=== PATIENT | female | born 1985 | race Caucasian/White ===

== ENCOUNTER → 2018-07-21 | Outpatient (CLI) | payer BC, SELFPAY ==
[2018-07-23 12:18] LABS: HPV Reflexed? NOT INDICATED
== END | disposition home or self-care (01) ==
PROVIDERS: Visit Provider Obstetrics & Gynecology
DX: Z12.4 Encounter for screening for malignant neoplasm of cervix (principal)
CPT/HCPCS: 88175; G0145

== ENCOUNTER → 2018-10-05 10:34 | Outpatient (CLI) | payer BC, SELFPAY ==
[2018-10-05 17:15] LABS: Chlamydia Trachomatis by PCR Negative (Negative); Neisserai gonorrhoeae by PCR Negative (Negative); Probe Check PASS; Sample Adequacy Control PASS; Specimen Processing Control PASS
== END ==
PROVIDERS: Visit Provider Obstetrics & Gynecology
DX: Z11.3 Encounter for screening for infections with a predominantly sexual mode of transmission (principal); Z34.81 Encounter for supervision of other normal pregnancy, first trimester
CPT/HCPCS: 87491; 87591

== ENCOUNTER → 2018-11-03 10:34 | Outpatient (CLI) | payer BC, SELFPAY ==
[2018-11-03 13:24] LABS: Absolute Lymphocyte Count 2.03 X10^3/uL (0.83-4.51); Absolute Neutrophil Count 5.3 X10^3/uL (2.0-7.7); Basophil# 0.07 X10^3/uL; Basophil% 0.8 % (0-1); Eosinophil# 0.14 X10^3/uL; Eosinophils% 1.7 % (0-5); Hematocrit 39.2 % (37-47); Hemoglobin 12.9 g/dL (12.0-15.0); Lymphocyte # 2.03 X10^3/ul (4.0); Lymphocyte % 24.4 % (19-41); Mean Corp Hgb Conc 32.9 g/dL (32-36); Mean Corpuscular Hgb 29.7 pg (27.0-32.0); Mean Corpuscular Volume 90.3 fL (81-99); Mean Platelet Vol. 9.2 fl (6.2-12.0); Monocyte% 8.4 % (0-10); NRBC Flagged by Analyzer 0 % (0-5); Neutrophil # 5.31 X10^3/uL (2.7-7.7); Platelet Count 264 K/mm3 (150-450); RBC Distribution Width CV 12.3 % (11.6-14.6); RBC Distribution Width SD 40.3 fl (35.1-43.9); Red Blood Count 4.34 M/mm3 (4.2-5.4); White Blood Count 8.3 K/mm3 (4.4-11.0)
[2018-11-03 13:37] LABS: Color, Urine Straw (Yellow); Glucose, Dipstick Normal (Normal); Ketone-Dipstick Negative (Negative); Leukocyte Esterase-Dipstick Negative /ul (Negative); Nitrite-Dipstick Negative (Negative); Occult Blood-Urine Negative /ul (Negative); Protein-Dipstick Negative (Negative); Urine Bilirubin Dipstick Negative (Negative); Urine Clarity Clear (Clear); Urine Urobilinogen Normal (Normal)
[2018-11-03 13:50] LABS: Amphetamine Urine VISTA NEGATIVE (<1000 ng/mL); Barbiturate Urine VISTA NEGATIVE (< 200 ng/mL); Benzodiazepine Urine VISTA NEGATIVE (< 200 ng/mL); Cocaine Urine VISTA NEGATIVE (< 300 ng/mL); Ecstacy Urine VISTA NEGATIVE (< 500 ng/mL); Methadone Urine VISTA NEGATIVE (< 300 ng/mL); PCP Urine VISTA NEGATIVE (< 25 ng/mL); THC Urine VISTA NEGATIVE (< 50 ng/mL); Vista UDS pH Range 7
[2018-11-03 14:28] LABS: HIV - WCH Non-Reactive (Nonreactive); Hepatitis B Surface Antigen Non-Reactive (Nonreactive); Hepatitis C Antibody Non-Reactive (Nonreactive); Rubella IgG 397.9 IU/mL
[2018-11-05 01:45] LABS: Prenatal RPR NONREACTIVE (NONREACTIVE)
== END ==
PROVIDERS: Visit Provider Obstetrics & Gynecology
DX: Z34.81 Encounter for supervision of other normal pregnancy, first trimester (principal)
CPT/HCPCS: 36415; 80307; 81002; 84443; 85025; 86703; 86762; 86803; 87340

== ENCOUNTER → 2019-02-17 | Outpatient (CLI) | payer OTHER, SELFPAY ==
[2019-02-17 16:08] LABS: Glucose Challenge Gest 1H 50g 99 mg/dL (70-140)
[2019-02-17 16:25] LABS: Hematocrit 37.7 % (37-47); Hemoglobin 12.3 g/dL (12.0-15.0); Mean Corp Hgb Conc 32.6 g/dL (32-36); Mean Corpuscular Hgb 29.4 pg (27.0-32.0); Mean Corpuscular Volume 90.2 fL (81-99); Mean Platelet Vol. 10.2 fl (6.2-12.0); Platelet Count 307 K/mm3 (150-450); RBC Distribution Width CV 12.8 % (11.6-14.6); Red Blood Count 4.18 M/mm3 (4.2-5.4); White Blood Count 11.8 K/mm3 (4.4-11.0)
== END | disposition home or self-care (01) ==
LOC: WOBLAB 13:25
PROVIDERS: Referring Provider Obstetrics & Gynecology; Visit Provider Obstetrics & Gynecology
DX: Z34.83 Encounter for supervision of other normal pregnancy, third trimester (principal)
CPT/HCPCS: 36415; 82950; 85027

== ENCOUNTER → 2019-04-14 | Outpatient (CLI) | payer OTHER, SELFPAY | END | disposition home or self-care (01) | LOC: LABSPEC 15:22 | PROVIDERS: Visit Provider Obstetrics & Gynecology | DX: Z11.3 Encounter for screening for infections with a predominantly sexual mode of transmission (principal) | CPT/HCPCS: 87081 ==

== ENCOUNTER 2019-04-26 07:05 | Inpatient (IN) | payer OTHER, SELFPAY ==
[2019-04-26] VITALS (25 sets, daily range): BP systolic 121–163; BP diastolic 69–98; PULSE 57–80; TEMP 97.5–99; BMI 28.3
[2019-04-26] MEDS: Lactated Ringers 1,000 ML 50 ML IV (07:43)
[2019-04-26 08:00] LABS: Absolute Lymphocyte Count 2.76 X10^3/uL (0.83-4.51); Absolute Neutrophil Count 7.8 X10^3/uL (2.0-7.7); Basophil# 0.04 X10^3/uL; Basophil% 0.3 % (0-1); Eosinophil# 0.11 X10^3/uL; Eosinophils% 0.9 % (0-5); Hematocrit 37.3 % (37-47); Hemoglobin 12.2 g/dL (12.0-15.0); Lymphocyte # 2.76 X10^3/ul (4.0); Lymphocyte % 23.3 % (19-41); Mean Corp Hgb Conc 32.7 g/dL (32-36); Mean Corpuscular Volume 88.8 fL (81-99); Monocyte# 1.04 X10^3/uL; Monocyte% 8.8 % (0-10); NRBC Flagged by Analyzer 0 % (0-5); Platelet Count 292 K/mm3 (150-450); RBC Distribution Width SD 45.1 fl (35.1-43.9); White Blood Count 11.8 K/mm3 (4.4-11.0)
--- NOTE | 2019-04-26 08:07 | HP.PCM_ITS ---
- Problem List (1) 38 weeks gestation of Status: Acute (2) IUGR (intrauterine growth restriction) Status: Acute History Date of Admission: 04/26/19 Final RAY: 05/09/19 Gestational age: 38 Weeks and 1 Days History of this : This is a 34 year-old, G [1], P [], at 38.1 weeks gestational age presenting for scheduled induction of labor for IUGR. Followed by M this with normal umbilical artery Dopplers thus far. EFW 2275g on 04/18/19. Allergies Penicillins Allergy (Verified 04/26/19 07:36) Hives Home Medications: Home Medications L.acidoph,Paracasei, B.lactis [Probiotic] 1 ea PO DAILY 04/26/19 Vits [Prenatabs FA ] 1 tab PO DAILY 04/26/19 Smoking Status: Current every day smoker Alcohol: None Number of Fetus(es): 1 NST - FHR Rate Baby A Baseline: 140 Variability:: Moderate Accelerations:: 15 x 15 Decelerations:: None NST Reactive:: Yes FHR Category:: Category I Uterine Activity:: 3/10 History Past Pregnancies: Past Pregnancies Delivery Date Name GA/ Weeks Outcome Route Wt Sex Labor Length Anesthesia Delivery Location Provider FOB Labs: Mom's Problem List Problem Status Onset Code 38 weeks gestation of Acute Z3A.38 IUGR (intrauterine growth restriction) Acute Mom's Labs & Results 04/26/19 04/26/19 07:40 07:40 WBC 11.8 H RBC 4.20 Hgb 12.2 Hct 37.3 MCV 88.8 MCH 29.0 MCHC 32.7 RDW Std Deviation 45.1 H RDW Coeff of Kennedi 14.0 Plt Count 292 MPV 10.0 Immature Gran % (Auto) 0.700 Neut % (Auto) 66.0 Lymph % (Auto) 23.3 [place] % (Auto) 8.8 Eos % (Auto) 0.9 Baso % (Auto) 0.3 Absolute Neuts (auto) 7.8 H Absolute Lymphs (auto) 2.76 Nucleated RBC % 0 Blood Type O POSITIVE Antibody Screen NEGATIVE Course Did the patient receive Yes care? Labs Blood Type: O RH: POSITIVE RPR/VDRL/Syphilis Nonreactive Rubella status Immune HbSAg Negative Date Done: 11/03/18 Chlamydia Negative Gonorrhea Negative HIV/AIDS Non-Reactive Group B Strep: Negative Current Obstetrical History Gestational Diabetes No Incompetent Cervix No Infertility No IUGR Yes Macrosomia No Hypertension/Pre-eclampsia No Placenta Previa/Abruption No PTL/PROM No Uterine anomaly No Oligohydramnios No Polyhydramnios No Multiple gestation No Past Medical History Asthma Yes: hx sports induced - resolved Diabetes No Hypertension No Heart disease No Mitral valve prolapse No Neurologic/Seizure disorder/ No Migraines Kidney disease No Liver disease No Varicosities No Clotting disorders/Hx of DVT No Thyroid Dysfunction No Other medical diseases Yes: hypoglycemia Psychiatric disorders Yes: depression/anxiety Major trauma No Abnormal PAP smear Yes: 7yrs ago HPV Sleep apnea No Mammogram in the last 2 years No Social History Marital Status: Alleged father Pollo German Hx Smoking Yes Smoking Status Former smoker Expected Infant Delivery Method: Spontaneous Vaginal Number of Visits: 10 Physical Exam Vitals: AVSS General: Alert, Oriented x3, Cooperative, No apparent distress HEENT: Atraumatic, Normocephalic Cardiovascular: Regular rate, Regular Rhythm Lungs: Clear to auscultation, Normal air movement Abdomen: Soft, Non Tender, Non-Distended Extremities:: No edema Neurological: Neuro grossly intact Estimated gestational size: Appropriate for gestational size Presentation: Cephalic Assessment/Plan All Active Problems 38 weeks gestation of (Acute) IUGR (intrauterine growth restriction) (Acute) This is a 34 year-old, G [1], P [], at 38.1 weeks gestational age, Cat I FHR -MULTIMEDIA JOURNALIST this am, if negative, proceed with induction
[2019-04-26] MEDS: Oxytocin 30 units/NS 500 ml 30 UNITS/500 ML IV.SOLN IV (08:15)
[2019-04-26] MEDS: miSOPROStol 25 MCG TABLET PO (10:45)
[2019-04-26] MEDS: 0.9% Saline Lock 10 ML Syringe IV ×2 (12:52→21:04)
[2019-04-26] MEDS: miSOPROStol 25 MCG TABLET 50 MCG PO (14:57)
--- NOTE | 2019-04-26 20:30 | PCM.PN.BLA ---
Progress Note LABOR PROGRESS NOTE Verónica notes painless contractions q3-4 minutes. + FM. AVSS GEN - NAD, AAO x 3 FHR 130, moderate variability, + accelerations, no decelerations TOCO 4/10 min SVE 2/75/-3, soft and midposition A/P: 34 yo G1 @ 38 1/7wga, Cat I FHR -Aborted roman bulb insertion given cervix soft and favorable. -Membranes stripped, will start pitocin. -Maternal and statuses reassuring.
[2019-04-27] VITALS (73 sets, daily range): BP systolic 93–162; BP diastolic 49–100; PULSE 56–110; RESP 14–18; TEMP 36.6–37.3; O2SAT 96–100
--- NOTE | 2019-04-27 04:14 | PCM.PN.BLA ---
Progress Note LABOR PROGRESS NOTE No complaints. Denies headache, vision changes. AVSS GEN - NAD, AAO x 3 FHR 130, moderate variability, + 10 x 10 acceleration, no deceleration SVE 4/75/-2 TOCO not tracing, pt on her side A/P: 34yo G1 @ 38 2/7wga, IOL, IUGR, Cat I FHR -Amniotomy performed with clear fluid -Continue pitocin as tolerated by mother and fetus -Maternal and statuses reassuring
[2019-04-27] MEDS: Lactated Ringers 500 ML 999 ML IV ×2 (04:25→06:36)
[2019-04-27] MEDS: Oxytocin 30 units/NS 500 ml 30 UNITS/500 ML IV.SOLN 6 UNITS IV (04:44)
[2019-04-27] MEDS: Ondansetron 4 MG/2 ML Vial IV (04:45)
[2019-04-27] MEDS: Lactated Ringers 1,000 ML 50 ML IV (04:45)
[2019-04-27] MEDS: fentaNYL-bupivacaine (epidural) 100 ML BAG EPIDURAL (06:26)
--- NOTE | 2019-04-27 07:15 | PCM.PN.BLA ---
Progress Note LABOR PROGRESS NOTE FHR Cat II with prolonged decelerations. Arrived to room and BP 90s/40s, Dr. Owen administered Ephedrine and IV bolus initiated. Patient repositioned into left lateral decubitus. SVE 4/90/0, IUPC and ISE placed, however poorly tracing ISE and EFM reapplied with improvement of heart rate to 170s bpm, returning to baseline 140, moderate variability over approximately 10-15 minutes. Will continue to monitor. Pitocin held.
[2019-04-27] MEDS: Oxytocin 30 units/NS 500 ml 30 UNITS/500 ML IV.SOLN 334 UNITS IV (10:38)
--- NOTE | 2019-04-27 10:40 | PLAC_PTH ---
PATIENT: PREET PAEZ LOC: [facility] U#:[id number] AGE/SX: 34/F ROOM: WP005 RE04/26/[address]: Dr. Tosha Watson MD : 1985 BED: 1 DIS: 04/29/2019 SPEC #: [id number] RECD: 04/27/19 13:34 STATUS: RODRI REHerbert #: [id number] KARISHMA: 04/27/19 10:[address]: Tosha Denise DEPT: SURGICAL PATHOLOGY RECD BY: Jesus Mars ENTERED: 04/27/19 14:06 SP TYPE: PLACENTA OTHR DR: RACHEL Vallejo Tissues: Placenta, NOS Procedures: Surgery Specimen Level V HEADER OPERATION: Vaginal delivery PRE-OP DIAGNOSIS: Vaginal deliver, IUGR TISSUE SUBMITTED: Placenta MICROSCOPIC DIAGNOSIS Placenta: Placental disc - third trimester placenta (278 gm). -?focal area of infarction with calcification (0.7 cm in greatest dimension). Membranes - no pathologic diagnosis. Umbilical cord - three blood vessels and no pathologic diagnosis. SJ:thien 04/29/19 MICROSCOPIC DESCRIPTION Slides are reviewed. GROSS DESCRIPTION SPECIMEN: PLACENTA / CLINICAL INFORMATION: A. Weight: 2.26 kg B. Gestational Age: 38 weeks C. Sex: Male PLACENTAL WEIGHT (POST FIXATION): 278 gm PLACENTAL DIMENSIONS: 14 x 12 x 2.5 cm PLACENTAL SHAPE: Usual ovoid PLACENTAL WEIGHT FOR GESTATIONAL AGE: Less than 10 percentile MEMBRANES - Present A. Insertion: Marginal B. Site of rupture from edge: 2 cm from edge of placental disc C. Color of membrane: Moreira-kyle D. Abnormalities: None UMBILICAL CORD - Present A. Color: Moreira-kyle B. Insertion: Paracentral C. Length: 28 cm D. Diameter: 1 cm E. Number of vessels: Three F. Abnormalities: A cyst is noted at the insertion of the umbilical cord filled with clear fluid. PLACENTAL DISC - Present A. Color of surface: Moreira-kyle B. surface abnormalities: None C. Maternal cotyledons: Intact with minimal tears D. Attached retro placental clot: No clot E. Cut surface: Dark red and spongy F. Lesions: Sections reveal a moreira, indurated area close to maternal surface measuring 0.7 cm in greatest dimension. G. Separate clot: Absent SECTIONS SUBMITTED: 1. Membrane roll 2. Cord, maternal end 3. Cord, end 4. Placental disc, and maternal surfaces, lesion 5. Placental disc, and maternal surfaces 6. Placental disc, and maternal surfaces NANY:thien 04/28/19 TC:5 CPT: 28301
--- NOTE | 2019-04-27 11:15 | NURSING ---
Indwelling urinary catheter present. WNL.
[2019-04-27] MEDS: 0.9% Saline Lock 10 ML Syringe IV (13:16)
--- NOTE | 2019-04-27 14:00 | PCM.OPRPT ---
Problem List (1) 38 weeks gestation of Status: Acute (2) IUGR (intrauterine growth restriction) Status: Acute Vaginal Delivery Maternal Presentation: Medically Indicated Induction Method of Induction: Pitocin, Amniotomy, Cytotec Medical Reason for Induction: Compromise: list:, - - IUGR Amniotic Membrane Rupture Type: Artificial Amniotic Fluid Description: Clear Final RAY Source: US <20 weeks Date of Procedure: 04/27/19 Surgery/ Procedure Performed: Spontaneous Vaginal Delivery Anesthesiologist: Cecily Owen Type of Anesthesia: Epidural Description of Procedure: Patient was FD\+2 station on my initial second stage evaluation. She pushed over approximately 1.5 hours with Cat I-II FHR to deliver a vigorous male infant in OA over an intact perineum. The infant was placed on the maternal abdomen and further attended by nursery personnel. The cord was doubly clamped and cut after 2 minutes of life. Cord gases and cord blood were obtained. The placenta delivered spontaneously and appeared intact on inspection. Sponge counts were correct x 2. Presentation: Vertex Placental Delivery Description: Spontaneous Placenta Disposition: [facility] Cord Vessel Description: 3 Vessels Nuchal Cord Compression: Without compression Cord Gases drawn per routine: ABG, VBG Cord Entanglement: None Drain: Welch to straight drain Estimated Blood Loss: 150 ml Infant A gender: Male Episiotomy Description: None Laceration: None Medications given after delivery: IV Pitocin Complications: None
[2019-04-28] VITALS: BP 117/76; PULSE 97; RESP 14; TEMP 36.8
[2019-04-28 03:15] VITALS: BP 120/77; PULSE 93; RESP 18; TEMP 36.6
[2019-04-28 08:00] VITALS: BP 131/80; PULSE 78; RESP 16; TEMP 37
--- NOTE | 2019-04-28 09:19 | PCM.PN.OB ---
Patient Problems: Active and Suspected Problems 38 weeks gestation of (Acute) IUGR (intrauterine growth restriction) (Acute) Subjective: Verónica was sore yesterday after delivery, but reports pain is minimal today. Denies heavy lochia. She is nursing infant, they are working on latch. No complaints. Objective: avss - Physical Exam Vitals/I&O's: Vital Signs Temp Pulse Resp BP 98 F 93 18 120/77 04/28/19 03:15 04/28/19 03:15 04/28/19 03:15 04/28/19 03:15 Oxygen Delivery Method Room Air Weight: 74.8 kg Body Mass Index (BMI) 28.3 Intake and Output for Last 24 Hours 04/26/19 04/27/19 04/28/19 23:59 23:59 23:59 Intake Total 1293.96 / 1413.96 2548.97 / 2548.97 Output Total 1600 / 2350 3050 / 3050 Balance -306.04 / -936.04 -501.03 / -501.03 General: Alert, Oriented x3, Cooperative, No apparent distress HEENT: Atraumatic, Normocephalic Abdomen: Soft, Non Tender, Non-Distended, - - fundus firm and nontender Extremities: No edema, No Calf Tenderness Neurological: Neuro grossly intact Psych/Mental Status: Normal Affect, Appropriate, Alert and oriented to time, place, person, mood and affect Current Medications Acetaminophen (Tylenol) 1,000 mg PO Q8H PRN PRN PRN Reason: Pain Score 1-3/10 Bisacodyl (Dulcolax) 10 mg RECTAL UD PRN PRN Reason: If no BM Dibucaine (Dibucaine) 1 applic TOPICAL TID PRN PRN; Protocol PRN Reason: Discomfort Hydrocortisone (Hytone) 1 applic TOPICAL TID PRN PRN; Protocol PRN Reason: Discomfort Ibuprofen (Motrin) 600 mg PO Q6H PRN PRN PRN Reason: Pain Score 1-3/10 Methylergonovine Maleate (Methergine) 0.2 mg IM X1 PRN PRN Reason: Excess bleeding/uterine atony Ondansetron HCl (Zofran) 4 mg IV Q4H PRN PRN PRN Reason: NAUSEA Last Admin: 04/27/19 04:45 Dose: 4 mg Documented by: Senna/Docusate Sodium (Senokot-S, Brenda-Colace) 1 - 2 tablet PO DAILY PRN PRN PRN Reason: Constipation Simethicone (Mylicon) 80 mg PO PCHS PRN PRN Reason: Indigestion/Stomach pain Sodium Chloride () 5 - 15 ml IV UD PRN PRN Reason: SALINE FLUSH Last Admin: 04/27/19 13:16 Dose: 10 ml Documented by: Medical Necessity - Tobacco Use Smoking Status: Former smoker Assessment/Plan All Active Problems 38 weeks gestation of (Acute) IUGR (intrauterine growth restriction) (Acute) This is a 34 year-old, G [1], P1 PPD#1 s/p doing well. -RH positive -Routine care -
[2019-04-28 14:00] VITALS: BP 155/88; PULSE 91; RESP 18; TEMP 36.7
[2019-04-28] MEDS: Acetaminophen 500 MG Tablet 1000 MG PO (18:25)
[2019-04-28 20:50] VITALS: BP 146/94; PULSE 75; RESP 17; TEMP 36.4
[2019-04-29 02:45] VITALS: BP 131/85; PULSE 85; RESP 16
--- NOTE | 2019-04-29 08:29 | PCM.PN.OB ---
Patient Problems: Active and Suspected Problems 38 weeks gestation of (Acute) IUGR (intrauterine growth restriction) (Acute) Subjective: Patient without complaints. Breast-feeding going well. Wants to go home if baby is able to go home. - Physical Exam Vitals/I&O's: Vital Signs Temp Pulse Resp BP 97.6 F L 85 16 131/85 H 04/28/19 20:50 04/29/19 02:45 04/29/19 02:45 04/29/19 02:45 Oxygen Delivery Method Room Air Weight: 164 lb 14.492 oz Body Mass Index (BMI) 28.3 Intake and Output for Last 24 Hours 04/27/19 04/28/19 04/29/19 23:59 23:59 23:59 Intake Total 2548.97 / 2548.97 Output Total 3050 / 3050 Balance -501.03 / -501.03 Current Medications Acetaminophen (Tylenol) 1,000 mg PO Q8H PRN PRN PRN Reason: Pain Score 1-3/10 Last Admin: 04/28/19 18:25 Dose: 1,000 mg Documented by: Bisacodyl (Dulcolax) 10 mg RECTAL UD PRN PRN Reason: If no BM Dibucaine (Dibucaine) 1 applic TOPICAL TID PRN PRN; Protocol PRN Reason: Discomfort Hydrocortisone (Hytone) 1 applic TOPICAL TID PRN PRN; Protocol PRN Reason: Discomfort Ibuprofen (Motrin) 600 mg PO Q6H PRN PRN PRN Reason: Pain Score 1-3/10 Methylergonovine Maleate (Methergine) 0.2 mg IM X1 PRN PRN Reason: Excess bleeding/uterine atony Ondansetron HCl (Zofran) 4 mg IV Q4H PRN PRN PRN Reason: NAUSEA Last Admin: 04/27/19 04:45 Dose: 4 mg Documented by: Senna/Docusate Sodium (Senokot-S, Brenda-Colace) 1 - 2 tablet PO DAILY PRN PRN PRN Reason: Constipation Simethicone (Mylicon) 80 mg PO PCHS PRN PRN Reason: Indigestion/Stomach pain Sodium Chloride () 5 - 15 ml IV UD PRN PRN Reason: SALINE FLUSH Last Admin: 04/27/19 13:16 Dose: 10 ml Documented by: Medical Necessity - Tobacco Use Smoking Status: Former smoker Assessment/Plan All Active Problems 38 weeks gestation of (Acute) IUGR (intrauterine growth restriction) (Acute) Doing well day #2 status post routine spontaneous vaginal delivery will discharge to home with routine instructions.
--- NOTE | 2019-04-29 08:30 | DCINST_ITS ---
Discharge Diet: No Restrictions Discharge Activity: May Shower, May Take a Tub Bath May resume sexual activity in: 4-6 weeks Additional Activity Instructions:: Nothing in the vagina for 4-6 weeks. You may return to work/school in 6 weeks. Call your doctor if you observe: Inability to urinate, Inability to have a bowel movement, Using more than one pad per hour Additional Instructions: If you experience any of the following, contact your healthcare provider. * Bleeding that soaks a pad every hour for 2 hours * Fever 100.4 or higher * Unrelieved incision or abdominal pain * Swelling, redness, discharge or bleeding from your incision or episiotomy site * Your incision begins to separate * Problems urinating (including inability to urinate or burning while urinating). * Visual changes * Severe headache * Flu-like symptoms * Pain or redness in one of both of your breasts * Pain, warmth, tenderness or swelling in your legs, especially the calf area * Frequent nausea and vomiting * Symptoms of depression or anxiety If you experience any of the following, call 911 or go to the nearest Emergency Room. * Chest pain * Problems breathing * Seizure activity * Partial or complete paralysis of a body part, slurred speech, weakness or drooping of the face, or a sudden inability to walk or hold your balance Allergies/Adverse Reactions: Allergies Penicillins Allergy (Verified 04/26/19 07:36) Hives Medications to take at Discharge L.acidoph,Paracasei, B.lactis [Probiotic] 1 ea PO DAILY 04/26/19 Vits [Prenatabs FA ] 1 tab PO DAILY 04/26/19 Please Follow Up With: Tosha Kim MD - [phone] When: Call to make an appointment with your doctor in 2 and 6 weeks. Primary Care Physician: Blaine Jones PA [Primary Care Provider] - Test Results: Test results from this visit will be discussed in further detail at your follow- up appointment, if applicable.
--- NOTE | 2019-04-29 08:30 | PCM.DCVAG ---
Discharge Diet: No Restrictions Discharge Activity: May Shower, May Take a Tub Bath May resume sexual activity in: 4-6 weeks Additional Activity Instructions:: Nothing in the vagina for 4-6 weeks. You may return to work/school in 6 weeks. Call your doctor if you observe: Inability to urinate, Inability to have a bowel movement, Using more than one pad per hour Additional Instructions: If you experience any of the following, contact your healthcare provider. Bleeding that soaks a pad every hour for 2 hours Fever 100.4 or higher Unrelieved incision or abdominal pain Swelling, redness, discharge or bleeding from your incision or episiotomy site Your incision begins to separate Problems urinating (including inability to urinate or burning while urinating). Visual changes Severe headache Flu-like symptoms Pain or redness in one of both of your breasts Pain, warmth, tenderness or swelling in your legs, especially the calf area Frequent nausea and vomiting Symptoms of depression or anxiety If you experience any of the following, call 911 or go to the nearest Emergency Room. Chest pain Problems breathing Seizure activity Partial or complete paralysis of a body part, slurred speech, weakness or drooping of the face, or a sudden inability to walk or hold your balance Allergies/Adverse Reactions: Allergies Penicillins Allergy (Verified 04/26/19 07:36) Hives Medications to take at Discharge L.acidoph,Paracasei, B.lactis [Probiotic] 1 ea PO DAILY 04/26/19 Vits [Prenatabs FA ] 1 tab PO DAILY 04/26/19 Please Follow Up With: Tosha Kim MD - [phone] When: Call to make an appointment with your doctor in 2 and 6 weeks. Primary Care Physician: Blaine Jones PA [Primary Care Provider] - Test Results: Test results from this visit will be discussed in further detail at your follow-up appointment, if applicable.
[2019-04-29 10:00] VITALS: BP 132/72; PULSE 70; RESP 16; TEMP 36.8
[2019-04-29 14:30] VITALS: BP 128/70; PULSE 68; RESP 12; TEMP 36.8
[2019-05-02 11:33] LABS: Pathology Specimen OB SEE PATHOLOGY REPORT
== END 2019-04-29 15:00 | disposition home or self-care (01) | DRG 807 ==
PROVIDERS: Admitting Provider Obstetrics & Gynecology; PCP Physician Assistant; Referring Provider Physician Assistant; Visit Provider Obstetrics & Gynecology
DX: O36.5930 Maternal care for other known or suspected poor fetal growth, third trimester, not applicable or unspecified (principal); Z37.0 Single live birth; O76 Abnormality in fetal heart rate and rhythm complicating labor and delivery; Z3A.38 38 weeks gestation of pregnancy; Z87.891 Personal history of nicotine dependence
CPT/HCPCS: 59020; 59025; 59050; 85025; 86850; 86900; 86901; 88307; 99218; J7120; A4216; G0378; J2405

== ENCOUNTER → 2019-07-12 10:55 | Outpatient (CLI) | payer OTHER, SELFPAY ==
[2019-04-26 07:49] VITALS: BMI 28.3
[2019-07-12 15:40] LABS: hCG Titer Quant., Serum < 1 mIU/mL (1-3)
[2019-07-12 15:58] LABS: Progesterone Level 0.39 ng/mL (See Comment)
== END ==
PROVIDERS: PCP Physician Assistant; Visit Provider Obstetrics & Gynecology
DX: Z30.430 Encounter for insertion of intrauterine contraceptive device (principal)
CPT/HCPCS: 36415; 84144; 84702

== ENCOUNTER → 2022-04-09 | Outpatient (CLI) | payer OTHER, SELFPAY ==
[2022-04-17 22:45] LABS: HPV APTIMA, High Risk Negative (Negative)
== END | disposition home or self-care (01) ==
LOC: LABSPEC 15:07
PROVIDERS: PCP Physician Assistant; Visit Provider Student in an Organized Health Care Education/Training Program
DX: Z12.4 Encounter for screening for malignant neoplasm of cervix (principal)
CPT/HCPCS: 87624; 88175; G0145

== ENCOUNTER → 2022-08-13 | Outpatient (CLI) | payer OTHER, SELFPAY ==
--- NOTE | 2022-08-13 11:58 | US_ITS ---
INDICATION: HYPOTHYROIDISM EXAMINATION: Ultrasound US Thyroid (eg thyroid, parathyroid, parotid) TECHNIQUE: Conklin scale and color doppler imaging was performed of the thyroid gland. COMPARISON: FINDINGS: RIGHT THYROID LOBE: 3.9 x 1.3 x 1.3 cm.. Homogeneous echotexture with normal vascularity. [No thyroid nodules are present. Colloid cyst anterior midpole 0.2 x 0.2 x 0.1 cm T RADS category 1. LEFT THYROID LOBE: 4.1 x 1.2 x 1.1 cm.. Homogeneous echotexture with normal vascularity. [No thyroid nodules are present. Colloid cyst anterior upper pole 0.3 x 0.1 x 0.2 cm T RADS category 1. ISTHMUS: 0.17 cm.. No thyroid nodules are present. US/Thyroid IMPRESSION: Single right and single left colloid cyst within the thyroid gland. T RADS category 1 benign. Electronically Signed: José Luis Harris MD, WERNER at 20:21 EDT ,
== END | disposition home or self-care (01) ==
PROVIDERS: PCP Physician Assistant; Referring Provider Physician Assistant; Visit Provider Physician Assistant
DX: E03.9 Hypothyroidism, unspecified (principal)
CPT/HCPCS: 76536

== ENCOUNTER → 2023-10-01 | Outpatient (CLI) | payer BC, SELFPAY ==
[2023-10-06 11:59] LABS: Chlamydia By Nucleic Acid AMP Negative (Negative); Gonococcus By Nucleic Acid AMP Negative (Negative)
== END | disposition home or self-care (01) ==
PROVIDERS: PCP Physician Assistant; Referring Provider Advanced Practice Midwife; Visit Provider Advanced Practice Midwife
DX: O09.90 Supervision of high risk pregnancy, unspecified, unspecified trimester (principal); Z3A.00 Weeks of gestation of pregnancy not specified
CPT/HCPCS: 87086; 87491; 87591

== ENCOUNTER → 2023-11-26 | Outpatient (CLI) | payer BC, SELFPAY ==
[2023-11-26 13:20] LABS: Absolute Lymphocyte Count 1.89 X10^3/uL (0.83-4.51); Absolute Neutrophil Count 6.9 X10^3/uL (2.0-7.7); Basophil# 0.04 X10^3/uL; Basophil% 0.4 % (0-1); Eosinophil# 0.11 X10^3/uL; Eosinophils% 1.1 % (0-5); Hematocrit 36.3 % (37-47); Hemoglobin 11.7 g/dL (12.0-15.0); Lymphocyte # 1.89 X10^3/ul (0.83-4.51); Lymphocyte % 19.3 % (19-41); Mean Corp Hgb Conc 32.2 g/dL (32-36); Mean Corpuscular Hgb 28.4 pg (27.0-32.0); Mean Corpuscular Volume 88.1 fL (81-99); Mean Platelet Vol. 9.2 fl (6.2-12.0); Monocyte# 0.72 X10^3/uL; Monocyte% 7.3 % (0-10); NRBC Flagged by Analyzer 0 % (0-5); Neutrophil # 6.89 X10^3/uL (2.7-7.7); Neutrophil % 70.4 % (47-70); Platelet Count 282 K/mm3 (150-450); RBC Distribution Width CV 13.1 % (11.6-14.6); Red Blood Count 4.12 M/mm3 (4.2-5.4); White Blood Count 9.8 K/mm3 (4.4-11.0)
[2023-11-26 14:20] LABS: HIV - WCH Non-Reactive (Nonreactive); Hepatitis B Surface Antigen Non-Reactive (Nonreactive); Hepatitis C Antibody Non-Reactive (Nonreactive); Rubella IgG Reactive (Nonreactive); Syphilis Antibodies Non-reactive
== END | disposition home or self-care (01) ==
LOC: LAB 12:52
PROVIDERS: PCP Physician Assistant; Referring Provider Advanced Practice Midwife; Visit Provider Advanced Practice Midwife
DX: O09.90 Supervision of high risk pregnancy, unspecified, unspecified trimester (principal); Z3A.00 Weeks of gestation of pregnancy not specified
CPT/HCPCS: 36415; 85025; 86703; 86762; 86780; 86803; 86850; 86900; 86901; 87340

== ENCOUNTER → 2024-01-19 | Outpatient (CLI) | payer BC, SELFPAY ==
[2024-01-19 11:51] LABS: Absolute Lymphocyte Count 1.72 X10^3/uL (0.83-4.51); Absolute Neutrophil Count 6.6 X10^3/uL (2.0-7.7); Basophil# 0.03 X10^3/uL; Basophil% 0.3 % (0-1); Eosinophil# 0.11 X10^3/uL; Eosinophils% 1.2 % (0-5); Hemoglobin 11.2 g/dL (12.0-15.0); Lymphocyte # 1.72 X10^3/ul (0.83-4.51); Lymphocyte % 18.6 % (19-41); Mean Corp Hgb Conc 31.1 g/dL (32-36); Mean Corpuscular Hgb 27.9 pg (27.0-32.0); Mean Corpuscular Volume 89.8 fL (81-99); Mean Platelet Vol. 9.6 fl (6.2-12.0); Monocyte# 0.66 X10^3/uL; Monocyte% 7.2 % (0-10); NRBC Flagged by Analyzer 0 % (0-5); Neutrophil % 71.5 % (47-70); Platelet Count 301 K/mm3 (150-450); RBC Distribution Width CV 13.2 % (11.6-14.6); RBC Distribution Width SD 43.2 fl (35.1-43.9); Red Blood Count 4.01 M/mm3 (4.2-5.4); White Blood Count 9.2 K/mm3 (4.4-11.0)
[2024-01-19 11:56] LABS: Glucose Challenge Gest 1H 50g 88 mg/dL (70-140)
[2024-01-19 12:29] LABS: HIV - WCH Non-Reactive (Nonreactive); Syphilis Antibodies Non-reactive
== END | disposition home or self-care (01) ==
LOC: BWCLAB 09:55
PROVIDERS: PCP Physician Assistant; Referring Provider Obstetrics & Gynecology; Visit Provider Obstetrics & Gynecology
DX: O09.92 Supervision of high risk pregnancy, unspecified, second trimester (principal); Z13.1 Encounter for screening for diabetes mellitus; Z3A.00 Weeks of gestation of pregnancy not specified
CPT/HCPCS: 36415; 82950; 85025; 86703; 86780

== ENCOUNTER → 2024-04-01 | Outpatient (CLI) | payer BC, SELFPAY | END | disposition home or self-care (01) | LOC: LABSPEC 15:48 | PROVIDERS: PCP Physician Assistant; Referring Provider Registered Nurse; Visit Provider Registered Nurse | DX: O09.92 Supervision of high risk pregnancy, unspecified, second trimester (principal); Z3A.00 Weeks of gestation of pregnancy not specified | CPT/HCPCS: 87081 ==

== ENCOUNTER 2024-04-15 13:50 | Outpatient (CLI) | payer BC, SELFPAY ==
[2024-04-15 14:00] VITALS: BP 138/87; PULSE 76; TEMP 37
[2024-04-15 14:15] VITALS: BMI 29.2
[2024-04-15 14:21] VITALS: BP 129/79; PULSE 78
[2024-04-15 14:25] LABS: Hematocrit 38.2 % (37-47); Hemoglobin 12.5 g/dL (12.0-15.0); Mean Corp Hgb Conc 32.7 g/dL (32-36); Mean Corpuscular Hgb 27.4 pg (27.0-32.0); Mean Corpuscular Volume 83.6 fL (81-99); Mean Platelet Vol. 9.4 fl (6.2-12.0); Platelet Count 430 K/mm3 (150-450); RBC Distribution Width CV 13.9 % (11.6-14.6); RBC Distribution Width SD 42.4 fl (35.1-43.9); Red Blood Count 4.57 M/mm3 (4.2-5.4); White Blood Count 13.1 K/mm3 (4.4-11.0)
[2024-04-15 14:33] LABS: Protein, Urine (Random) < 6.0 mg/dL (<11.9); Protein:Creat Ratio 160 mg/g CRE (0-200)
[2024-04-15 14:34] VITALS: BP 125/80; PULSE 79
[2024-04-15 14:35] LABS: AST(SGOT) 15 U/L (15-37); Alanine Aminotransfer ALT/SGPT 22 U/L (13-56); Creatinine, Serum 0.59 mg/dL (0.55-1.02); EST Glomerular Filtration Rate 122 mL/min (>60); Est Glom Filt Rate - Afr Amer 148 mL/min (>60); Estimated Creatinine Clearance 131.21 ml/min; Uric Acid 4.3 mg/dL (2.6-6.0)
--- NOTE | 2024-04-15 14:40 | US_ITS ---
PROCEDURE: OB LIMITED (NO BIOMETRICS) REASON FOR EXAM: Amniotic fluid index. COMPARISON: None. FINDINGS Number: 1 Position: Vertex Placental Position: Fundal Placental Abnormalities: None. ESTIMATED GESTATIONAL AGE: Baseline: 38 weeks and 4 days ESTIMATED DATE OF DELIVERY: Baseline: April 25, 2024 BIOPHYSICAL ASSESSMENT: Amniotic Fluid Volume: 6.5 cm Amniotic Fluid Index: 10.6 (8-24 cm normal range) Cardiac Motion: 154 beats per minute (average) Trunk and Limb Motion: Present. US/OB Limited (No Biometrics) IMPRESSION: Normal amniotic fluid index. Reading Location: [facility]
--- NOTE | 2024-04-15 15:22 | OB.TRI.PN ---
Progress Notes Date of Service: 04/15/24 Progress Note: Patient presents for triage evaluation secondary to elevated bp and decreased fundal height. FHT: 140 Moderate variability reactive no decelerations category I tracing [place]: no Contractions Assessment and plan: TATE reassuring and labs normal, Reactive NST, reassuring maternal and status patient discharged to home to follow-up in office at next appointment. See problem list details for additional plan information. Laboratory Studies: Laboratory Tests 04/15/24 04/15/24 Range/Units 14:10 13:45 WBC 13.1 H (4.4-11.0) K/mm3 RBC 4.57 (4.2-5.4) M/mm3 Hgb 12.5 (12.0-15.0) g/dL Hct 38.2 (37-47) % MCV 83.6 (81-99) fL MCH 27.4 (27.0-32.0) pg MCHC 32.7 (32-36) g/dL RDW Std Deviation 42.4 (35.1-43.9) fl RDW Coeff of Kennedi 13.9 (11.6-14.6) % Plt Count 430 (150-450) K/mm3 MPV 9.4 (6.2-12.0) fl Creatinine 0.59 (0.55-1.02) mg/dL Estim Creat Clear Calc 131.21 ml/min Est GFR (MDRD) Af Amer 148 (>60) mL/min Est GFR (MDRD) Non-Af 122 (>60) mL/min Uric Acid 4.3 (2.6-6.0) mg/dL AST 15 (15-37) U/L ALT 22 (13-56) U/L U Random Total Protein < 6.0 (<11.9) mg/dL Urine Creatinine 31.30 (NO RANGE EST.) mg/dL Protein/Creatinin Ratio 160 (0-200) mg/g CRE Charges/Coding Multi Select Codes Urinary/Genital Urinary/Genital CPT Codes: 08703-41 non-stress test Interp Assessment & Plan (1) Uterine size date discrepancy : COMMENT: normal TATE-d/c home (2) AMA (advanced maternal age) multigravida 35+: COMMENT: 36 week growth US and delivery by 40 weeks (3) Pyelectasis of fetus on ultrasound: COMMENT: rpt us at 24- pyelectasis continues,28, 36 weeks (4) History of prior with IUGR : COMMENT: 36 week growth US (5) Depression: QUALIFIERS: Depression Type: unspecified Qualified Code(s): F32.A - Depression, unspecified (6) Supervision of high-risk : QUALIFIERS: Trimester: second trimester Qualified Code(s): O09.92 - Supervision of high risk , unspecified, second trimester COMMENT: PRR, , RAY 04/25/24, JUAN ANTONIO Cao, Pollo (7) : QUALIFIERS: Weeks of gestation: 38 weeks Qualified Code(s): Z3A.38 - 38 weeks gestation of COMMENT: gbs neg. declines genetic & carrier testing
== END 2024-04-15 15:34 | disposition home or self-care (01) ==
LOC: WPOUT 13:53 → WP 13:53
PROVIDERS: PCP Physician Assistant; Referring Provider Advanced Practice Midwife; Visit Provider Advanced Practice Midwife
DX: O26.843 Uterine size-date discrepancy, third trimester (principal); Z3A.38 38 weeks gestation of pregnancy; O99.891 Other specified diseases and conditions complicating pregnancy; N13.30 Unspecified hydronephrosis; O99.343 Other mental disorders complicating pregnancy, third trimester; F32.A Depression, unspecified
CPT/HCPCS: 36415; 59025; 59050; 76815; 82565; 82570; 84156; 84450; 84460; 84550; 85027; 99221; G0378

== ENCOUNTER 2024-04-20 16:05 | Outpatient (CLI) | payer BC, SELFPAY ==
[2024-04-20] VITALS (8 sets, daily range): BP systolic 117–131; BP diastolic 71–83; PULSE 78–86; O2SAT 97–98
[2024-04-20 16:54] LABS: Hematocrit 39.4 % (37-47); Hemoglobin 12.8 g/dL (12.0-15.0); Mean Corp Hgb Conc 32.5 g/dL (32-36); Mean Corpuscular Hgb 27.6 pg (27.0-32.0); Mean Corpuscular Volume 85.1 fL (81-99); Mean Platelet Vol. 9.4 fl (6.2-12.0); Platelet Count 423 K/mm3 (150-450); RBC Distribution Width CV 14.2 % (11.6-14.6); RBC Distribution Width SD 43.5 fl (35.1-43.9); Red Blood Count 4.63 M/mm3 (4.2-5.4); White Blood Count 11.9 K/mm3 (4.4-11.0)
[2024-04-20 17:23] LABS: AST(SGOT) 25 U/L (<=31); Alanine Aminotransfer ALT/SGPT 10 U/L (<=34); Creatinine, Serum 0.6 mg/dL (0.6-1.0); EST Glomerular Filtration Rate 117 (>60); Uric Acid 4.5 mg/dL (2.6-6.0)
[2024-04-20 17:27] LABS: Protein, Urine (Random) < 6 mg/dL (<=12); Protein:Creat Ratio UNABLE TO CALCULATE mg/g CRE (0-200)
--- NOTE | 2024-04-21 01:12 | OB.TRI.PN_ITS ---
Progress Notes Date of Service: 04/20/24 Progress Note: Patient presents for triage evaluation secondary to elevate dbps in office FHT: 135-140 Moderate variability reactive no decelerations category I tracing [place]: irregular Contractions Assessment and plan: elevated bps without diagnosis of htn, repeat bps here all WNL and labs WNL no symptoms. 39 weeks Reactive NST, reassuring maternal and status patient discharged to home to follow-up firdya to discuss IOL by 40 for AMA. See problem list details for additional plan information. Laboratory Studies: Laboratory Tests 04/20/24 Range/Units 16:35 WBC 11.9 H (4.4-11.0) K/mm3 RBC 4.63 (4.2-5.4) M/mm3 Hgb 12.8 (12.0-15.0) g/dL Hct 39.4 (37-47) % MCV 85.1 (81-99) fL MCH 27.6 (27.0-32.0) pg MCHC 32.5 (32-36) g/dL RDW Std Deviation 43.5 (35.1-43.9) fl RDW Coeff of Kennedi 14.2 (11.6-14.6) % Plt Count 423 (150-450) K/mm3 MPV 9.4 (6.2-12.0) fl Creatinine 0.6 (0.6-1.0) mg/dL Est GFR (MDRD) Non-Af 117 (>60) Uric Acid 4.5 (2.6-6.0) mg/dL AST 25 (<=31) U/L ALT 10 (<=34) U/L U Random Total Protein < 6 (<=12) mg/dL Urine Creatinine 30.00 (NO RANGE EST.) mg/dL Protein/Creatinin Ratio UNABLE TO CALCULATE (0-200) mg/g CRE Charges/Coding Procedures Urinary/Genital 52xxx-59xxx: 11280-03 non-stress test Interp Assessment & Plan (1) Elevated blood-pressure reading without diagnosis of hypertension: (2) Uterine size date discrepancy : COMMENT: normal TATE-d/c home (3) URI (upper respiratory infection): (4) AMA (advanced maternal age) multigravida 35+: COMMENT: 36 week growth US and delivery by 40 weeks (5) Pyelectasis of fetus on ultrasound: COMMENT: rpt us at 24- pyelectasis continues,28, 36 weeks (6) History of prior with IUGR : COMMENT: 36 week growth US (7) Depression: QUALIFIERS: Depression Type: unspecified Qualified Code(s): F32.A - Depression, unspecified (8) Supervision of high-risk : QUALIFIERS: Trimester: second trimester Qualified Code(s): O09.92 - Supervision of high risk , unspecified, second trimester COMMENT: PRR, , RAY 04/25/24, JUAN ANTONIO Cao, Pollo (9) : QUALIFIERS: Weeks of gestation: 39 weeks Qualified Code(s): Z3A.39 - 39 weeks gestation of COMMENT: gbs neg. declines genetic & carrier testing
== END 2024-04-20 18:10 | disposition home or self-care (01) ==
LOC: WPOUT 16:12 → WP 16:13
PROVIDERS: PCP Physician Assistant; Referring Provider Obstetrics & Gynecology; Visit Provider Obstetrics & Gynecology
DX: O26.843 Uterine size-date discrepancy, third trimester (principal); R03.0 Elevated blood-pressure reading, without diagnosis of hypertension; Z3A.39 39 weeks gestation of pregnancy; O99.513 Diseases of the respiratory system complicating pregnancy, third trimester; J06.9 Acute upper respiratory infection, unspecified; O99.891 Other specified diseases and conditions complicating pregnancy; N13.30 Unspecified hydronephrosis; O99.343 Other mental disorders complicating pregnancy, third trimester; F32.A Depression, unspecified
CPT/HCPCS: 36415; 59025; 59050; 82565; 82570; 84156; 84450; 84460; 84550; 85027; 99221; G0378

== ENCOUNTER 2024-04-27 19:04 | Inpatient (IN) | payer BC, SELFPAY ==
[2024-04-20 16:30] VITALS: RESP 14; TEMP 36.6; O2SAT 99
[2024-04-27 19:24] VITALS: BMI 29.7
[2024-04-27 19:36] VITALS: BP 145/89; PULSE 86; O2SAT 98
[2024-04-27 20:35] LABS: Absolute Lymphocyte Count 2.23 X10^3/uL (0.83-4.51); Absolute Neutrophil Count 9.9 X10^3/uL (2.0-7.7); Basophil# 0.04 X10^3/uL; Basophil% 0.3 % (0-1); Eosinophil# 0.04 X10^3/uL; Eosinophils% 0.3 % (0-5); Hematocrit 39.1 % (37-47); Hemoglobin 12.6 g/dL (12.0-15.0); Lymphocyte # 2.23 X10^3/ul (0.83-4.51); Lymphocyte % 16.3 % (19-41); Mean Corp Hgb Conc 32.2 g/dL (32-36); Mean Corpuscular Hgb 27.4 pg (27.0-32.0); Mean Platelet Vol. 9.6 fl (6.2-12.0); Monocyte# 1.32 X10^3/uL; Monocyte% 9.7 % (0-10); NRBC Flagged by Analyzer 0 % (0-5); Neutrophil # 9.88 X10^3/uL (2.7-7.7); Neutrophil % 72.4 % (47-70); Platelet Count 325 K/mm3 (150-450); RBC Distribution Width CV 14.6 % (11.6-14.6); RBC Distribution Width SD 44.5 fl (35.1-43.9); White Blood Count 13.7 K/mm3 (4.4-11.0)
[2024-04-27 21:01] LABS: Syphilis Antibodies Nonreactive (Nonreactive)
[2024-04-27 21:09] VITALS: BP 148/86; PULSE 72; O2SAT 98
[2024-04-27 21:11] VITALS: RESP 16; TEMP 36.7
[2024-04-27] MEDS: miSOPROStol 25 MCG TABLET VAGINAL (21:12)
--- NOTE | 2024-04-27 21:14 | HP.PCM.OB_ITS ---
HPI - General General Date of Admission: 04/27/24 HPI Narrative PREET PAEZ, is a 39 F who presents for IOL postdates and AMA Maternal Data Information RAY Calculator Estimated Delivery Date Method Current WG Current Estimate 04/25/24 Ultrasound #1 40w 2d Other Estimates 04/25/24 LMP (Certain) 40w 2d PFSH PFSH Medical History Depression History of prior with IUGR Anxiety Seasonal allergies History of HPV infection IUGR (intrauterine growth restriction) 38 weeks gestation of Home Medications ?Medication ?Instructions ?Recorded ?Last Taken ?Type L.acidoph,paracasei,B.animalis 10 1 ea PO DAILY bowel regularity 04/26/19 04/26/24 History billion cell capsule cholecalciferol (vitamin D3) 50 50 mcg PO DAILY pregna ncy 09/15/23 04/26/24 History mcg (2,000 unit) capsule vitamins no.163-iron tab PO 4 04/26/24 History bis-gly 20 mg-folate no.10 1 mg tablet (PNV Tabs 20-1) Allergy/AdvReac Type Severity Reaction Status Date / Time Penicillins Allergy Hives Verified 04/27/24 19:59 Family History Grandfather Cancer Maternal Uncle Diabetes Maternal Social History adopted: No household members: spouse and children number of children: 1 current occupational status: employed current occupation: [employer] current occupational exposures/hazards: No pets and animals: Yes (Avoid litterbox) pets and animals: cat(s) history of recent travel: No sexually active: Yes Smoking Status: Former smoker alcohol intake: current alcohol intake frequency: holidays/special occasions only details: Not while substance use type: does not use well-balanced diet: daily or most days caffeine: Yes Type: coffee Number of servings: 1 eating out: 1-3 times/week during the past year weight has: remained stable what type of physical activity do you participate in: walking frequency: 3-4 times per week duration: 15-30 minutes/day jaison/sikhism: Methodist seatbelt use: always do you feel safe at home: Yes additional social history: [place] History 2 Elective abortions Hx Para 0 Spontaneous abortions Hx # Term Pregnancies Ectopic pregnancies Hx # Pregnancies Multiple births # of living children 1 Past Pregnancies Del. Date Name GA/Weeks Outcome Route Bth Weight Gen Labor Lgth Anesthesia Del Locatn Provider FOB 04/27/19 Nash 38 live - full term 5#5oz Male epidur al [facility] Summer Trista-Walter Abad Delivery Date: 04/27/19 Last Updated by: Jamee Villeda IOL, IUGR Visit Details Expected Delivery Route/Plan Labor Preferences- CB/BF classes: [] labor support person: [] labor intervention preferences: [] pain management options preferred: [] cut cord/dad catch: [] : [] PP control planned: [] discussed possible routes of delivery and associated risks: [] special requests: [] Plans Covid status: [] Flu vaccine: [] Tdap vaccine: [] Rhogam: [] LARC form signed: [] Problem list reviewed and updated with the most current plan of care details and appropriate orders placed. Relevant counseling for the gestational age provided. Continue routine care and follow up unless otherwise noted in visit notes/problem list details OB Flowsheet Initial Weight: Not Recorded Date -?-?-?-?-?-?-?-?-?-?-?-?- EGA Weight BP Urine Prot -?-?-?-?-?-?-?-?-?-?-?-?- Glucose FHR FuHt Pres Dilation -?-?-?-?-?-?-?-?-?-?-?-?- Effaced St Visit Note 10/01/23 -?-?-?-?-?-?-?-?-?-?-?-?- 10w 3d 164 lb 8 oz 164 lb 8 oz 128/52 -?-?-?-?-?-?-?-?-?-?-?-?- 175 -?-?-?-?-?-?-?-?-?-?-?-?- KW- CRL 33. CRL cons with dates Declines NIPT 10/29/23 -?-?-?-?-?-?-?-?-?-?-?-?- 14w 3d 164 lb 2 oz 130/76 Nega tive -?-?-?-?-?-?-?-?-?-?-?-?- Negative 155 -?-?-?-?-?-?-?-?-?-?-?-?- JV- no lof, vagi nal bleeding, or cramping. discussed possibility of starting a baby asa due to h/o IUGR. she will think about it. we discussed that research is sparse but would not hurt 11/25/23 -?-?-?-?-?-?-?-?-?-?-?-?- 18w 2d 166 lb 112/72 Negative -?-?-?-?-?-?-?-?-?-?-?-?- Negative 151 -?-?-?-?-?-?-?-?-?-?-?-?- -Francesca. Possibl y feeling flutters. Enc needs to get labs done JANEEN 12/24/23 -?-?-?-?-?-?-?-?-?-?-?-?- 22w 3d 169 lb 137/71 Negative -?-?-?-?-?-?-?-?-?-?-?-?- Negative 150 -?-?-?-?-?-?-?-?-?-?-?-?- SM- no vb crmapi ng lof good fm 01/19/24 -?-?-?-?-?-?-?-?-?-?-?-?- 26w 1d 170 lb 6 oz 122/66 Nega tive -?-?-?-?-?-?-?-?-?-?-?-?- Negative 145 26 -?-?-?-?-?-?-?-?-?-?-?-?- SM- no vb lof go od fm no reuglar ctx cbc gct today 02/15/24 -?-?-?-?-?-?-?-?--?-?-?-?- 30w 0d 170 lb 118/80 Negative -?-?-?-?-?-?-?-?-?-?-?-?- Negative 150 29 -?-?-?-?-?-?-?-?-?-?-?-?- KW- no vb/lof/ct x. good fm. Tdap and LARC today. 02/29/24 -?-?-?-?-?-?-?-?-?-?-?-?- 32w 0d 170 lb 107/69 -?-?-?-?-?-?-?-?-?-?-?-?- 145 31 -?-?-?-?-?-?-?-?-?-?-?-?- KW- no vb/lof/ct x. good fm 03/15/24 -?-?-?-?-?-?-?-?-?-?-?-?- 34w 1d 173 lb 2 oz 132/78 Nega tive -?-?-?-?-?-?-?-?-?-?-?-?- Negative 140 34 -?-?-?-?-?-?-?-?-?-?-?-?- JV- no lof, vagi nal bleeding, or dec fm. has growth scan at 36 weeks 04/01/24 -?-?-?-?-?-?-?-?-?-?-?-?- 36w 4d 172 lb 2 oz 128/80 Nega tive -?-?-?-?-?-?-?-?-?-?-?-?- Negative 155 37 -?-?-?-?-?-?-?-?-?-?-?-?- LC- LC- no vb/ctx/lof. good fm. LC- no vb/ctx/lof. good fm.g augustin at 23% . gbs obtained. desires low intervention labor/ 04/07/24 -?-?-?-?-?-?-?-?-?-?-?-?- 37w 3d 171 lb 133/84 Negative -?-?-?-?-?-?-?-?-?-?-?-?- Negative 140 37 1 -?-?-?-?-?-?-?-?-?-?-?-?- -2 KW- no v b/lof/ctx. good fm. has sinus infection x 1.5 weeks, had fever 2 days ago-atb given. labor precautions 04/15/24 -?-?-?-?-?-?-?-?-?-?-?-?- 38w 4d 172 lb 2 oz 139/89 Nega tive -?-?-?-?-?-?-?-?-?-?-?-?- Negative 140 35 -?-?-?-?-?-?-?-?-?-?-?-?- KW- no vb/lof/ct x. good fm. was dizzy this am. elevated BP- to wp for evaluation. 04/20/24 -?-?-?-?-?-?-?-?-?-?-?-?- 39w 2d 174 lb 160/89 151/93 Negative -?-?-?-?-?-?-?-?-?-?-?-?- Negative 140 36 Cephalic 1 .5 -?-?-?-?-?-?-?-?-?-?-?-?- 60 0 SM- no vb lof good fm no reuglar ctx no MCKEON BV to l and d for elevated bps 04/22/24 -?-?-?-?-?-?-?-?-?-?-?-?- 39w 4d 173 lb 2 oz 129/89 126/76 Negative -?-?-?-?-?-?-?-?-?-?-?-?- Negative 150 37.5 Cephalic -?-?-?-?-?-?--?-?-?-?-?-?- LC- no mckeon/visual change/RUQ pain.no vb/ctx/lof. good fm. 04/25/24 -?-?-?-?-?-?-?-?-?-?-?-?- 40w 0d 174 lb 6 oz 137/88 Nega tive -?-?-?-?-?--?-?-?-?-?-?-?- Negative 140 35 Cephalic 1 .5 -?-?-?-?-?-?-?-?-?-?-?-?- kw-no vb/lof/ctx . good fm. JV scan for S<D. kw-no vb/lof/ctx. good fm. c ervix very posterior and exam difficult. JV scan for S<D. TATE normal. IOL set up for 3/5 per pt request due to sons birthday tomorrow. NST FHR Rate Baby A Baseline: 130 Variability:: Moderate Accelerations:: 15 x 15 Decelerations:: None NST Reactive:: Yes FHR Category:: Category I Uterine Activity:: irregular ROS Constitutional Constitutional: Reports systems reviewed and no addt'l complaints, except as documented Eyes Eyes: Denies change in vision ENT HEENT: Reports systems reviewed and no addt'l complaints, except as documented; Denies headache(s) Cardiovascular Cardiovascular: Reports systems reviewed and no addt'l complaints, except as documented; Denies chest pain or dyspnea Respiratory/Chest Respiratory/Chest: Reports systems reviewed and no addt'l complaints, except as documented Gastrointestinal Gastrointestinal: Reports systems reviewed and no addt'l complaints, except as documented; Denies abdominal pain Genitourinary Genitourinary: Reports systems reviewed and no addt'l complaints, except as documented, contractions Details: present (irregular) and movement Details: present; Denies dysuria or genital lesions Musculoskeletal Musculoskeletal: Reports systems reviewed and no addt'l complaints, except as documented Neurologic Neurologic: Reports systems reviewed and no addt'l complaints, except as documented Endocrine Endocrinology: Reports systems reviewed and no addt'l complaints, except as documented Vital Signs Vital Signs Vital Signs: 04/27/24 19:36 04/27/24 19:36 04/27/24 19:36 Temperature Temperature Source Pulse Rate 86 Respiratory Rate Blood Pressure 145/89 H BP Systolic 145 BP Diastolic 89 Pulse Ox 98 04/27/24 21:09 04/27/24 21:09 04/27/24 21:09 Temperature Temperature Source Pulse Rate 72 Respiratory Rate Blood Pressure 148/86 H BP Systolic 148 BP Diastolic 86 Pulse Ox 98 04/27/24 21:11 04/27/24 21:11 04/27/24 21:11 Temperature 98.0 F Temperature Source Temporal Pulse Rate Respiratory Rate 16 Blood Pressure BP Systolic BP Diastolic Pulse Ox Weight Weight: 173 lb Body Mass Index (BMI) 29.7 Physical Exam Const alert, oriented x3, no apparent distress and healthy appearing HEENT normocephalic and moist oral mucous membranes Head and Scalp: atraumatic Neck full ROM, no lymphadenopathy, supple and thyroid normal General: trachea midline Lymph Lymphatic: no lymphadenopathy noted Chest inspection of chest normal Resp normal respiratory effort Cardio regular rate GI soft to palpation and non-tender GI Narrative: gravid Inspection: gravid external exam normal Manual OB Exam: estimated gestational size appropriate, presentation cephalic, dilated, effaced and station Extremity normal to inspection General Extremity: Negative for edema Skin no rashes or lesions noted Neuro no focal motor deficits and deep tendon reflexes 2+ bilaterally Motor Exam: strength 5/5 throughout and clonus absent Psych mental status grossly normal Labs Labs Labs: Blood Type O POSITIVE Antibody Screen NEGATIVE Hct 39.1 % (37-47) Hgb 12.6 g/dL (12.0-15.0) Obstetrics Ultrasound Syphilis Total Ab Nonreactive (Nonreactive) Rubella IgG Antibody Reactive (Nonreactive) Hep Bs Antigen Non-Reactive (Nonreactive) Hepatitis C Antibody Non-Reactive (Nonreactive) Chlamydia DNA ([place]) Negative (Negative) N.gonorrhoeae DNA ([place]) Negative (Negative) HIV 1&2 Antibody Non-Reactive (Nonreactive) Glucose 1 Hr 50 gm 88 mg/dL (70-140) Rhogam given: No Assessment & Plan (1) AMA (advanced maternal age) multigravida 35+: COMMENT: 36 week growth US and delivery by 40 weeks (2) Supervision of high-risk : QUALIFIERS: Trimester: second trimester Qualified Code(s): O09.92 - Supervision of high risk , unspecified, second trimester COMMENT: PRR, , RAY 04/25/24, PC Nash, [place] (3) : QUALIFIERS: Weeks of gestation: 40 weeks Qualified Code(s): Z3A.40 - 40 weeks gestation of COMMENT: gbs neg. declines genetic & carrier testing PLAN: Plan iol cytotec epid if desired then pit per protocol
[2024-04-27 21:40] LABS: AST(SGOT) 20 U/L (<=31); Alanine Aminotransfer ALT/SGPT 15 U/L (<=34); Creatinine, Serum 0.71 mg/dL (0.70-1.20); EST Glomerular Filtration Rate 113 (>60); Estimated Creatinine Clearance 109.97 ml/min (50-250); Uric Acid 4.9 mg/dL (2.6-6.0)
[2024-04-27 22:11] VITALS: BP 136/87; PULSE 84; RESP 16; TEMP 36.6; O2SAT 98
[2024-04-27 23:06] LABS: Protein, Urine (Random) 8.7 mg/dL (0.0-12.0); Protein:Creat Ratio 255 mg/g CRE (0-200)
[2024-04-27 23:43] VITALS: BP 138/94; PULSE 72
[2024-04-27 23:44] VITALS: BP 137/92; PULSE 81; RESP 16; TEMP 36.6
[2024-04-28] VITALS (51 sets, daily range): BP systolic 99–166; BP diastolic 56–94; PULSE 58–108; RESP 16; TEMP 36.3–36.7; O2SAT 93–100
[2024-04-28] MEDS: miSOPROStol 25 MCG TABLET VAGINAL (01:26)
[2024-04-28] MEDS: Lactated Ringers 1,000 ML 50 ML IV (05:15)
[2024-04-28] MEDS: LACTATED RINGERS 500 ML 999 ML IV ×2 (05:17→06:05)
[2024-04-28] MEDS: 0.9% Normal Saline Single 100 ML IV.SOLN. INTRA-UTER (07:35)
[2024-04-28] MEDS: Oxytocin 15 Units/NS 250ml 15 UNITS/250 ML IV.SOLN 2 UNITS IV (09:39)
--- NOTE | 2024-04-28 11:03 | PCM.PN.BLA ---
Progress Note fb place dand pit started cat I tracing overall reasuring 1-2 cm
[2024-04-28] MEDS: fentaNYL-bupivacaine (epidural) 100 ML BAG EPIDURAL (11:37)
[2024-04-28] MEDS: Oxytocin 15 Units/NS 250ml 15 UNITS/250 ML IV.SOLN 83 UNITS IV (12:55)
--- NOTE | 2024-04-28 17:59 | EX.PCM.OBVAG ---
Assessment & Plan (1) AMA (advanced maternal age) multigravida 35+: COMMENT: 36 week growth US and delivery by 40 weeks (2) Elevated blood-pressure reading without diagnosis of hypertension: (3) Vaginal delivery: COMMENT: SM IOL 40 AMA girl blanca Maternal Data Information RAY Calculator Estimated Delivery Date Method Current WG Current Estimate 04/25/24 Ultrasound #1 40w 3d Other Estimates 04/25/24 LMP (Certain) 40w 3d Vaginal Delivery Maternal Presentation Maternal Presentation: see assessment and plan Vaginal Delivery Information Procedure Performed: Spontaneous Vaginal Delivery Surgeon/Practitioner: Gaby Prado Pre-Procedure Diagnosis: see assessment and plan Post-Procedure Diagnosis: same Type of anesthesia: Epidural Findings Description of procedure: Patient began pushing and delivered the head in the HECTOR presentation. The head was delivered atraumatically and a loose nuchal cord ?1 was identified and easily reduced over the 's head. The anterior and posterior shoulders delivered without complication followed by the rest of the and the was placed on the maternal abdomen. Delayed cord clamping was employed for approximately 60 seconds. Cord was clamped and cut and gentle traction was applied to the cord and the placenta delivered spontaneously immediately following it was noted to be intact with three-vessel cord. The perineum and vagina were inspected and noted to have no laceration. EBL was 100 cc. Patient and tolerated delivery well. Presentation: Vertex Placental Delivery Description: Spontaneous Specimen collected: Yes Description of specimen(s) removed: placenta Cylinder Block Mechanic debt counselor: No Post Vaginal Deli Medications given after delivery: Other (pitocin) Complication Complications: No Multi Select Codes Urinary/Genital Urinary/Genital CPT Codes: 32874 Vaginal Delivery [facility]
--- NOTE | 2024-04-28 21:23 | DCINST_ITS ---
Discharge Instructions Diet Discharge Diet: No restrictions DC O2, CPAP, BIPAP needs Home O2 Discharge instructions: No Dressing / Incision Discharge Activity: Return to Normal Activity, May Not Drive (while taking narcotic pain medications.) and May Shower May resume sexual activity in: 4-6 weeks Dressing / Incision Call your doctor if your incision/area has: Continuous Slow Oozing, Sudden Increased Bleeding, Increased Pain/ Swelling, Increased Redness and Foul Smelling Discharge Follow Up Care Please Follow Up With: Gaby Prado MD When: Call [phone] to make an appointment with your doctor in 6 weeks. If you had elevated blood pressure or 4th degree laceration, you will need to be seen in 2 weeks. Test Results: Test results from this visit will be discussed in further detail at your follow- up appointment, if applicable. Discharge Plan Admission Admit Date/Time: 04/27/24 19:04 Attending Provider: Gaby Prado Primary Care Provider: Blaine Jones Discharge Orders/Prescriptions Prescriptions: No Action PNV Tabs 20-1 20 mg iron- 1 mg tablet PO cholecalciferol (vitamin D3) 50 mcg (2,000 unit) capsule 50 mcg PO DAILY L.acidoph,paracasei,B.animalis 1 EACH capsule 1 ea PO DAILY Referrals / Follow Up: Blaine Jones PA [Primary Care Provider] - Disposition Disposition (needs filled in before D/C Order can be placed): Home, Self Care
[2024-04-29] MEDS: Acetaminophen 500 MG Tablet 1000 MG PO (00:27)
[2024-04-29 00:29] VITALS: BP 140/88; PULSE 73; RESP 16; TEMP 36.6; O2SAT 98
[2024-04-29 04:52] VITALS: BP 126/88; PULSE 90; RESP 16; TEMP 36.7; O2SAT 96
--- NOTE | 2024-04-29 07:41 | PN.OBGYN_ITS ---
Subjective Subjective Patient doing well without complaints. Tolerating PO. Ambulating and voiding without difficulty. Feeding well. Denies chest pain, shortness of breath, calf pain/swelling, fevers, chills, lightheadedness. Objective Data Objective Data Vital Signs: Vital Signs Temp Pulse Resp BP Pulse Ox O2 Del Method 98.0 F 90 16 126/88 H 96 Room Air 04/29/24 04:52 04/29/24 04:52 04/29/24 04:52 04/29/24 04:52 04/29/24 04:52 04/29/24 00:29 Oxygen Delivery Method Room Air Weight: 173 lb Body Mass Index (BMI) 29.7 Intake & Output: Intake and Output for Last 24 Hours 04/27/24 04/28/24 04/29/24 23:59 23:59 23:59 Intake Total 2257.36 / 2257.36 Output Total 700 / 700 Balance 1557.36 / 1557.36 Lab / Micro Data 04/27/24 20:20 04/27/24 20:20 ROS Constitutional Constitutional: Reports systems reviewed and no addt'l complaints, except as documented; Denies anorexia or headache(s) Cardiovascular Cardiovascular: Reports systems reviewed and no addt'l complaints, except as documented; Denies dizziness, dyspnea, nausea or tachypnea Respiratory/Chest Respiratory/Chest: Reports systems reviewed and no addt'l complaints, except as documented; Denies cough, dyspnea, shortness of breath at rest or tachypnea Gastrointestinal Gastrointestinal: Reports systems reviewed and no addt'l complaints, except as documented; Denies abdominal pain, constipation or nausea Genitourinary Genitourinary: Reports systems reviewed and no addt'l complaints, except as documented; Denies burning urination, difficulty urinating, dysuria, urinary frequency or urinary incontinence Musculoskeletal Musculoskeletal: Reports systems reviewed and no addt'l complaints, except as documented Integumentary Integumentary: Reports systems reviewed and no addt'l complaints, except as documented Neurologic Neurologic: Reports systems reviewed and no addt'l complaints, except as documented; Denies abnormal speech, dizziness or headache(s) Psychiatric Psychiatric: Reports systems reviewed and no addt'l complaints, except as documented Endocrine Endocrinology: Reports systems reviewed and no addt'l complaints, except as documented Hematologic/Lymphatic Hematologic/Lymphatic: Reports systems reviewed and no addt'l complaints, except as documented Physical Exam Const alert, oriented x3 and no apparent distress Neck full ROM Resp normal respiratory effort, normal air movement and no retractions Effort and Inspection: able to speak in complete sentences and symmetric chest movement GI soft to palpation Bladder / Kidney Exam: bladder normal to palpation Uterus Palpation: uterus fundus firm Extremity normal to inspection and full ROM Psych mental status grossly normal, thought process normal and cooperative Assessment & Plan (1) Vaginal delivery: COMMENT: SM IOL 40 AMA girl blanca PLAN: s/p PPD # 1 1. routine post delivery care 2. breast feeding- support given 3. rh positive 4. rubella immune (2) Elevated blood-pressure reading without diagnosis of hypertension: (3) Uterine size date discrepancy : COMMENT: normal TATE-d/c home (4) URI (upper respiratory infection): (5) AMA (advanced maternal age) multigravida 35+: COMMENT: 36 week growth US and delivery by 40 weeks (6) Pyelectasis of fetus on ultrasound: COMMENT: rpt us at 24- pyelectasis continues,28, 36 weeks (7) History of prior with IUGR : COMMENT: 36 week growth US (8) Depression: QUALIFIERS: Depression Type: unspecified Qualified Code(s): F32.A - Depression, unspecified (9) Supervision of high-risk : QUALIFIERS: Trimester: second trimester Qualified Code(s): O09.92 - Supervision of high risk , unspecified, second trimester COMMENT: PRR, , RAY 04/25/24, JUAN ANTONIO Cao, [place] (10) : QUALIFIERS: Weeks of gestation: 40 weeks Qualified Code(s): Z 3A.40 - 40 weeks gestation of COMMENT: gbs neg. declines genetic & carrier testing Charges/Coding Multi Select Codes Urinary/Genital Urinary/Genital CPT Codes: No Charge
[2024-04-29 08:59] VITALS: BP 121/85; PULSE 69; RESP 15; TEMP 36.4
--- NOTE | 2024-04-29 12:16 | CASEMGMT ---
Social Work Brief Assessment - Labor and Delivery Unit Patient Address: [address] [place], [place] [id number] Phone number: [phone] Date and Time of Referral:? 04/27/242019 Referred By: Dr. Prado Date and time of intervention:? 04/29/24929 Reason for Referral:?? hx anxiety and depression Sw completed chart review and acknowledges social work consult. Sw presented to bedside and introduced self to mother of baby (MOB- Ve[place]rnica) and father of baby (FOB- Pollo). Sw explained reason for sw involvement and completed psychosocial assessment. Informant:?? Medical record and mother of baby (MOB) and FOB. History:? IRMA is 39 year old female who is 2, para 1- now 1 following labor and delivery of . IRMA received routine care during with [place]. This is second baby for parents together, also residing with them at home is their 5 year old son, Nash. Parents state their housing is safe and secure, no concerns. Parents report to obtaining all necessary baby supplies for baby. - MOB notes that she does have a history of anxiety and depression, she is not prescribed any medications to help her manage her mental health symptoms. MOB denies being prescribed any medications to help her. MOB states that she has not struggled with any symptoms of her anxiety and depression for quite some time. Information/ education provided to parents regarding what symptoms to be mindful of during this period. MOB states that she did struggle with some depression after her son was born. MOB states that circumstances were different following that delivery, and she did not have the support that she anticipated, but now she does. MOB and FOB state that they have family and friends who are supportive. - MOB and FOB deny substance use prior to . FOB admits to having a history of substance use, but not for many years. - Both parents work outside of the home. They state that they have family members and friends who are able to assist when childcare when required. Assessment:? MOB and baby admitted following labor and delivery of . MOB and FOB at bedside and engaging with sw throughout completion of assessment. MOB and FOB both made and maintained eye contact with sw, and asked appropriate questions, conversation flowed naturally. MOB and FOB have obtained all necessary baby supplies and have natural supports in place. MOB observed to hold baby comfortably, providing loving and appropriate hands on care to . Plan:???MOB and baby to be discharged when medically ready. Information provdied to parents regarding: safe sleep, shaken baby prevention, Help Me Grow, list of [facility] resources and signs and symptoms of baby blues and depression/ anxiety. No further needs requested or indicated. -Rodney Thomas, PEST CONTROL SERVICE SALES AGENT, RECREATION COORDINATOR
[2024-04-29 13:46] VITALS: BP 140/79; PULSE 85; RESP 16; TEMP 36.4
== END 2024-04-29 14:30 | disposition home or self-care (01) | DRG 807 ==
PROVIDERS: Admitting Provider Obstetrics & Gynecology; PCP Physician Assistant; Referring Provider Obstetrics & Gynecology; Visit Provider Obstetrics & Gynecology
DX: O48.0 Post-term pregnancy (principal); Z37.0 Single live birth; O99.344 Other mental disorders complicating childbirth; F32.A Depression, unspecified; O26.843 Uterine size-date discrepancy, third trimester; R03.0 Elevated blood-pressure reading, without diagnosis of hypertension; Z3A.40 40 weeks gestation of pregnancy; Z87.891 Personal history of nicotine dependence; O69.81X0 Labor and delivery complicated by cord around neck, without compression, not applicable or unspecified; Z87.59 Personal history of other complications of pregnancy, childbirth and the puerperium
CPT/HCPCS: 59025; 59050; 82565; 82570; 84156; 84450; 84460; 84550; 85025; 86780; 86850; 86900; 86901

== ENCOUNTER → 2024-05-13 | Outpatient (CLI) | payer BC, SELFPAY | END | disposition home or self-care (01) | LOC: LABSPEC 16:32 | PROVIDERS: PCP Physician Assistant; Referring Provider Registered Nurse; Visit Provider Registered Nurse | DX: R30.0 Dysuria (principal) | CPT/HCPCS: 87086 ==